=== PATIENT | female | born 2000 | race American Indian/Alaskan Native ===

== ENCOUNTER 2021-07-08 04:16 | Emergency (ER) | payer SELFPAY ==
[2021-07-08] MEDS ORDERED: dexAMETHasone 20 MG/5 ML VIAL IM ONE (04:46)
[2021-07-08] MEDS ORDERED: LIDOCAINE VISCOUS 2% 15 ML ORAL LIQD PO ONE (04:46)
[2021-07-08] MEDS ORDERED: KETOROLAC 30 MG/1 ML INJ IM ONE (04:46)
[2021-07-08] MEDS ORDERED: AMOXICILLIN/K CLAV 875/125MG TAB PO ONE (04:47)
--- NOTE | 2021-07-08 04:59 | Emergency Department Report ---
ED General Adult HPI - General Chief complaint: Sore Throat Stated complaint: TONSILS SWOLLING Source: patient Mode of arrival: Ambulatory Limitations: No Limitations - History of Present Illness Initial comments: Patient is a 21-year-old -Citizen Of [place] female with a history of morbid obesity who presents to the ED with complaint of acute onset persistent sore throat, swollen tonsils with exudate, and painful anterior cervical lymph nodes for the last 2 days. Patient states that in the last 8 hours she has not been able to sleep because of worsening pain. Patient denies fever, chills, nausea and vomiting, headache, chest pain or shortness of breath, cough, nasal and sinus congestion, abdominal pain, palpitations or dysphagia and dysphonia. MD Complaint: Sore throat; swollen painful cervical lymph nodes -: Sudden, days(s) (2) Location: mouth Radiation: non-radiation Severity scale (0 -10): 8 Quality: aching, sharp Consistency: constant Improves with: none Worsens with: eating Associated Symptoms: denies other symptoms. denies: confusion, chest pain, cough, diaphoresis, fever/chills, headaches, loss of appetite, malaise, nausea/vomiting, rash, seizure, shortness of breath, syncope, weakness Treatments Prior to Arrival: none - Related Data Previous Rx's Medication Instructions Recorded Last Taken Type Ibuprofen [Motrin] 800 mg PO Q8HR PRN #30 tablet 07/08/21 Unknown Rx Lidocaine Viscous 2% 10 ml PO Q6H PRN #120 ml 07/08/21 Unknown Rx Penicillin V Potassium 500 mg PO Q6H #40 tab 07/08/21 Unknown Rx predniSONE [Deltasone] 40 mg PO QDAY #10 tab 07/08/21 Unknown Rx Allergies Allergy/AdvReac Type Severity Reaction Status Date / Time shellfish derived Allergy Hives Verified 07/08/21 04:19 ED Review of Systems ROS: Stated complaint: TONSILS SWOLLING Other details as noted in HPI Constitutional: denies: chills, fever Eyes: denies: eye pain, eye discharge, vision change ENT: throat pain, other (Swollen tonsils with exudates). denies: ear pain Respiratory: denies: cough, shortness of breath, SOB with exertion, wheezing Cardiovascular: denies: chest pain, palpitations Endocrine: no symptoms reported Gastrointestinal: denies: abdominal pain, nausea, vomiting, diarrhea Genitourinary: denies: urgency, dysuria, discharge Musculoskeletal: denies: back pain, joint swelling, arthralgia Skin: denies: rash, lesions Neurological: denies: headache, weakness, paresthesias Psychiatric: denies: anxiety, depression Hematological/Lymphatic: denies: easy bleeding, easy bruising ED Past Medical Hx - Medications Home Medications: Home Medications Medication Instructions Recorded Confirmed Last Taken Type Ibuprofen [Motrin] 800 mg PO Q8HR PRN #30 tablet 07/08/21 Unknown Rx Lidocaine Viscous 2% 10 ml PO Q6H PRN #120 ml 07/08/21 Unknown Rx Penicillin V Potassium 500 mg PO Q6H #40 tab 07/08/21 Unknown Rx predniSONE [Deltasone] 40 mg PO QDAY #10 tab 07/08/21 Unknown Rx ED Physical Exam - General Limitations: No Limitations General appearance: alert, in no apparent distress - Head Head exam: Present: atraumatic, normocephalic, normal inspection - Eye Eye exam: Present: normal appearance, PERRL, EOMI Pupils: Present: normal accommodation - ENT ENT exam: Present: mucous membranes moist, TM's normal bilaterally, normal external ear exam, other (Erythematous, mildly swollen tonsils with thick white exudates; uvula midline; no sign of peritonsillar abscess) - Neck Neck exam: Present: normal inspection, full ROM, lymphadenopathy (Palpable anterior cervical lymphadenopathy) - Respiratory Respiratory exam: Present: normal lung sounds bilaterally. Absent: respiratory distress, wheezes, rales, rhonchi, chest wall tenderness, decreased breath sounds, prolonged expiratory - Cardiovascular Cardiovascular Exam: Present: regular rate, normal rhythm, normal heart sounds. Absent: systolic murmur, diastolic murmur, rubs, gallop - GI/Abdominal GI/Abdominal exam: Present: soft, normal bowel sounds. Absent: tenderness, guarding, rebound, hyperactive bowel sounds, hypoactive bowel sounds, organomegaly - Extremities Exam Extremities exam: Present: normal inspection, full ROM, normal capillary refill. Absent: tenderness, pedal edema, joint swelling - Back Exam Back exam: Present: normal inspection, full ROM. Absent: tenderness, CVA tenderness (R), CVA tenderness (L), muscle spasm, paraspinal tenderness, vertebral tenderness - Neurological Exam Neurological exam: Present: alert, oriented X3, CN II-XII intact, normal gait, reflexes normal - Psychiatric Psychiatric exam: Present: normal affect, normal mood - Skin Skin exam: Present: warm, dry, intact, normal color. Absent: rash ED Course Vital Signs 07/08/21 04:23 Temperature 98.3 F Pulse Rate 92 H Respiratory 16 Rate Blood Pressure 142/84 O2 Sat by Pulse 99 Oximetry ED Medical Decision Making - Medical Decision Making This is a 21-year-old -Citizen Of [place] female with a history of morbid obesity who presents to the ED with complaint of acute onset persistent sore throat, swollen tonsils with exudate, and painful anterior cervical lymph nodes for the last 2 days. Patient states that in the last 8 hours she has not been able to sleep because of worsening pain. In the ED, patient is alert and oriented x3 and is not in any distress. Patient was treated in the ED for pain and was given initial oral antibiotics. Based on the history and physical exam findings, the patient will discharge home on antibiotics and pain medications and advised to follow-up with her primary care physician in 7 to 10 days for reevaluation. Patient is advised return to the ED immediately if symptoms get worse. - Differential Diagnosis Strep pharyngitis; bacterial tonsillitis; lymphadenopathy; mononucleosis Critical care attestation.: If time is entered above; I have spent that time in minutes in the direct care of this critically ill patient, excluding procedure time. ED Disposition Clinical Impression: Acute bacterial tonsillitis, Acute bacterial pharyngitis, Anterior cervical lymphadenopathy Disposition: HOME / SELF CARE / HOMELESS Is pt being admited?: No Does the pt Need Aspirin: No Condition: Stable Instructions: Tonsillitis, [id number], Sore Throat, [id number], Pharyngitis, [id number], Lymphadenopathy Additional Instructions: Your symptoms are likely due to bacterial pharyngitis and tonsillitis suspected to be due group A streptococcus bacteria. Therefore take medications with food, drink plenty of fluids and follow-up with your primary care physician in 7 to 10 days for reevaluation. Return to the ED immediately if symptoms get worse. Prescriptions: predniSONE [Deltasone] 40 mg PO QDAY #10 tab Lidocaine Viscous 2% 10 ml PO Q6H PRN #120 ml PRN Reason: Sore Throat Ibuprofen [Motrin] 800 mg PO Q8HR PRN #30 tablet PRN Reason: Pain , Severe (7-10) Penicillin V Potassium 500 mg PO Q6H #40 tab Referrals: [facility] [Provider Group] - 7-10 days Forms: Work/School Release Form(ED) Time of Disposition: 05:00 Print Language: [place]
[2021-07-08 05:48] VITALS: BP 136/74
== END 2021-07-08 05:48 | disposition home or self-care (01) ==
LOC: ED 04:16
DX: J03.90 Acute tonsillitis, unspecified (principal); L04.0 Acute lymphadenitis of face, head and neck; Z91.013 Allergy to seafood
CPT/HCPCS: 96372; 99282; J1100; J1885